=== PATIENT | male | born 1935 | race Caucasian/White ===

== ENCOUNTER 2016-09-11 09:39 | Day surgery (SDC) | payer MEDICARE ==
[~2016-09-11] VITALS: Ht 175.3 cm; Wt 94.8 kg
[2016-09-11] VITALS (11 sets, daily range): BP systolic 91–127; BP diastolic 51–59; PULSE 53–88; RESP 6–20; O2SAT 94–100
[~2016-09-11 09:39] MED LIST: ACET325T51 PO; ASCO500C6 PO; ASPI-973 PO; BACL10TA PO; BISA10SU61 RC; CRAN450C PO; Clindamycin 900 mg/50 mL D5W IV ONE; DAPT500V2 IV; DOCU250C2 PO; DULO60CA61 PO; GABA-502 PO; Lactated Ringer's 1,000 ML IV SCH; MAGN400O4 PO; OXYB5TAB PO; OXYC10TA69 PO; OXYC5TAB72 PO; PIPE3.377 IV; POLY17PO6 PO; SENN-133 PO; ZINC220C9 PO
--- NOTE | 2016-09-11 10:30 | PCM.HPANE ---
Patient Data Surgeon Admitting Provider: Attending Provider:Kristian Lee MD Primary Care Physician:Lisa Valenzuela MD Other Provider:Diya Edmondsoningham Anesthesia Reason for Visit Pressure Ulcers Ht/WT & BMI Height (Feet): 5 Height (Inches): 9 Weight (Kilograms): 94.8 Body Mass Index 30.00 Allergies Coded Allergies: cephalexin (Verified Allergy, Unknown, 08/06/16) ciprofloxacin (Verified Allergy, Unknown, 08/06/16) vancomycin (Verified Allergy, Unknown, 08/06/16) Past Anesthesia History Anesthesia History: Denies:: Abnormal Airway, Anesthesia Reactions, Difficult Intubation, Fam Anesthesia Reaction, Fam Malignant Hypertherm, Malignant Hyperthermia Diabetes History Hx Diabetes?: No 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) Medications Active Scripts oxyCODONE 5 Mg Tablet5 Mg PO Q4H PRN For Pain 3 Days Prov:Shannan Pittman DO 08/16/16 Oxycodone ER (Oxycontin)10 Mg Tab.er.12h20 Mg PO BID 3 Days Prov:Shannan Pittman DO 08/16/16 Baclofen 10 Mg Qoqrql51 Mg PO QID 3 Days Prov:Shannan Pittman DO 08/16/16 Reported Medications Vqffboaaqdrh-Memf-Zykbluad,Iso (Zosyn 3.375 gm/50 ml Galaxy)3.375 Gm/50 Ml Froz.piggy3.375 Gm IV TID 09/10/16 Daptomycin 500 Mg Bjnx831 Mg IV DAILY 09/10/16 Acetaminophen 325 Mg Bnrvva331 Mg PO Q4H PRN For Pain Ref 0 08/06/16 Bisacodyl (Dulcolax Rectal)10 Mg Supp.rect10 Mg RC DAILY PRN For Constipation 30 Days Ref 0 08/06/16 Magnesium Hydroxide (Milk of Magnesia)400 Mg/5 Ml Oral.susp30 Ml PO DAILY PRN For Constipation 08/06/16 Gabapentin 300 Mg Gwobpef795 Mg PO TID Ref 0 08/06/16 Zinc Sulfate 220 Mg Oxjnvrq961 Mg PO BID 08/06/16 Duloxetine 60 Mg Capsule.dr60 Mg PO BID Ref 0 08/06/16 Ascorbic Acid (Vitamin C)500 Mg Capsule.er500 Mg PO BID 08/06/16 Sennosides (Senna)8.6 Mg Tablet8.6 Mg PO DAILY 08/06/16 Oxybutynin Chloride ER 5 Mg Tab.er.245 Mg PO DAILY Ref 0 08/06/16 Polyethylene Glycol 3350 (Miralax)17 Gm Powd.pack17 Gm PO DAILY 08/06/16 Docusate Sodium 250 Mg Ohzhowf212 Mg PO DAILY Ref 0 08/06/16 Cranberry Fruit Concentrate (Cranberry)450 Mg Bivhbrq886 Mg PO DAILY 08/06/16 Aspirin 81 Mg Lyevzh49 Mg PO DAILY Ref 0 08/06/16 History History of ENT Problems?: No HEENT History: Denies:: Abnormal Airway Cataracts Difficult Intubation Dysphagia Sinus Problem Denture Type: Full- Upper Teeth Condition: Missing Teeth Other History/Comment no maxillary teeth. 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) Denies:: Cardiac Surgery Chest Pain Congestive Heart Failure Edema Heart Murmur Irregular Heartbeat Pacemaker Thrombophlebitis Other Cardiac History: ENDOCARDITIS - not currently a problem Hx of Respiratory Problem?: No Respiratory History: Denies:: Asthma COPD Chest Surgery Dyspnea Emphysema Hemoptysis Pneumonia Tuberculosis Hx Neurologic Problems?: Yes (paraplegia) Hx of GI Problems?: Yes Other GI Pertinent History: CONSTIPATION Hx of Problems?: Yes Genitourinary History: Positive for:: Kidney Stones (3 years ago ) Urinary Tract Infection (NEUROGENIC BLADDER) Denies:: HX of Hemodialysis (STAGE 3 CHRONIC KIDNEY DISEASE) HX of Peritoneal Dialysis: No Other Pertinent History: SUPRA PUBIC CATH Male Hx: Denies:: Prostate Problems Scrotal Mass Testicular Surgery Skin History: Positive for:: History Skin Disorders? Pressure Ulcers (OSTEOMYELITIS MYKE HIP) Hx Musculoskeletal Problems?: Yes Musculoskeletal History: Positive for:: Musculoskeletal Trauma (PARAPLEGIC) Hx of Psycho/Social Problems?: Yes Psycho Social History: Positive for:: Hx Depression Hx Surgeries?: Yes (Suprapubic ) Hx Any Other Health Problems?: No Other History: Positive for:: Hospitalization (Suprapubic placement ) Denies:: Cancer Thyroid Disease History Blood Transfusions: Denies:: Blood Transfuse Reaction Blood Transfusions Hx Diabetes: No Hx Alcohol Use: NoHx Substance Use: No Smoking Status: Never Smoker Have You Smoked inLast 12 mo: No Stop/Bang Risk Assessment Category Category 1A: Patient has history of documented sleep apnea, and HAS NOT received any narcotic, sedative or anesthesia administration during this stay. Category 1B: Patient has history of documented sleep apnea, and HAS received any narcotic , sedative or anesthesia administration during this stay Category 2: Patient has SUSPECTED Obstructive Sleep Apnea, and HAS received any narcotic , sedative or anesthesia administration during this stay. Category 3: Patient has SUSPECTED Obstructive Sleep Apnea and HAS NOT received narcotic, sedative or anesthesia administration during this stay. Category 4: Outpatient in Procedural Areas with known sleep apnea or who screen positive for High Risk via the STOP/BANG questionnaire. Exam Exam Vital Signs Vital Signs Date Time Temp Pulse Resp B/P Pulse Ox O2 Delivery O2 Flow Rate FiO2 09/11/16 09:56 36.4 60 19 127/57 95 Room Air General Appearance: Alert, Oriented X3 HEENT/AIRWAY: MP 2, Other (Missing maxillary teeth. Mandibular teeth worn to gum line) Lungs: Clear to Auscultation, Clear to Percussion Heart: Exam Unremarkable, Regular Rate/Rhythm Plan Impression Patient chart reviewed, patient interviewed and anesthestic plan with risks, benefits, and alternatives discussed, and informed consent obtained. NPO per Anesth. Guidelines: Yes ASA Physical Status: ASA3 Severe Disease Anesthetic Plan: GA Bene/Risks/Altern/Consents: Yes HP Complete Prior to Induction: Yes Quinn Nguyen MD September 11, 2016 10:10
[2016-09-11] MEDS ORDERED: SODIUM HYPOCHLORITE 0.25% TOPICAL ONE (10:33)
[2016-09-11] MEDS ORDERED: Lactated Ringer's 500 ML IV PRN (11:06)
[2016-09-11] MEDS ORDERED: Lactated Ringer's 1,000 ML IV SCH (11:06)
[2016-09-11] MEDS ORDERED: Lactated Ringer's 1,000 ML IV ONE (11:08)
[2016-09-11] MEDS ORDERED: Ondansetron 2 mg/mL 2 mL Inj IVPUSH PRN ×2 (11:10→13:05)
[2016-09-11] MEDS ORDERED: Phenylephrine 10,000 mCg/mL Inj IVPUSH PRN (11:10)
[2016-09-11] MEDS ORDERED: MetoCLOpramide 5 mg/mL 2 mL Inj IVPUSH PRN (11:10)
[2016-09-11] MEDS ORDERED: Atropine 0.4 mg/mL Inj IVPUSH PRN (11:10)
[2016-09-11] MEDS ORDERED: Labetalol 5 mg/mL 4 mL Inj IV PRN (11:10)
[2016-09-11] MEDS ORDERED: EPHEDrine Sulfate 50 mg/mL Inj IVPUSH PRN (11:10)
[2016-09-11] MEDS ORDERED: fentaNYL-PF 50 mCg/mL 2 mL Inj IVPUSH PRN (11:10)
--- NOTE | 2016-09-11 13:53 | PCM.ANEP1 ---
Post Anesthesia PACU Phase 1 Assessment Vital Signs Vital Signs Date Time Temp Pulse Resp B/P Pulse Ox O2 Delivery O2 Flow Rate FiO2 09/11/16 13:40 57 8 95/54 96 Nasal Cannula 3 09/11/16 13:36 59 6 91/52 94 Room Air 09/11/16 13:29 55 7 107/51 100 Simple Mask 10 09/11/16 13:20 53 6 105/51 100 Simple Mask 10 09/11/16 13:15 36.2 53 7 105/56 100 Simple Mask 10 09/11/16 09:56 36.4 60 19 127/57 95 Room Air Level of Alertness: Sleepy, easy to arouse PASTOR's with Equal Strength: Yes Pain: No Nausea or Vomiting: No CV Function & Hydration Stable: Yes Airway Device: Oxygen Delivery: Simple Mask Lungs: Clear to Auscultation, Clear to Percussion PACU Phase 2 Assessment Complications: No Follow up Care: No Patient Instructions Provided: N/A Quinn Nguyen MD September 11, 2016 13:53
[2016-09-11] MEDS ORDERED: Phenylephrine/NS 100 mCg/mL 10 mL Syringe IVPUSH ONE (14:30)
[2016-09-11] MEDS ORDERED: EPHEDrine/NS 5 mg/mL 5 mL Syringe ONE (14:30)
[2016-09-11] MEDS ORDERED: Ondansetron 2 mg/mL 2 mL Inj ONE (14:30)
[2016-09-11] MEDS ORDERED: Propofol 10,000 mCg/mL 20 mL Inj ONE (14:30)
[2016-09-11] MEDS ORDERED: fentaNYL-PF 50 mCg/mL 2 mL Inj ONE (14:30)
[2016-09-11] MEDS ORDERED: Dexamethasone 4 mg/mL Inj ONE (14:30)
[2016-09-11] MEDS ORDERED: [UNRECOGNIZED DRUG - OTHER] IV SCH (14:30)
[2016-09-11] MEDS ORDERED: PIPERACILLIN TAZO DEXTROSE ISO IV SCH (14:30)
--- NOTE | 2016-09-11 14:55 | NUR ---
Post op Transfer to [facility] room 1030 via stretcher at 14:40 onto Clinitron bed. Alert, oriented. Son at bedside. R dressing CDI, ZAIN draining sanguineous fluid. L dressing with moderate sero-sand fluid. 2-3 l O2 via nc to keep sats above 92%. 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 Equal strength and movement in upper extremities. Paraplegic. [place].
[2016-09-11] MEDS: Lactated Ringer's 1,000 ML IV SCH (15:00)
--- NOTE | 2016-09-11 17:35 | NUR ---
Wound Note Wound orders received, patient is 80 yo male who has had his right and left hip ulcers debrided today, right hip was debrided and a flap closure was performed, left was debrided only. Patient is currently on a clinitron bed, right hip dressing is not taken down today but left hip dressing was removed to reveal 5 cm diameter circular wound with periostium in the wound bed, no tunneling or tracts are apparent and edges are fresh and bleeding. Per discussion with Dr Lee NPWT was applied today with 2 pieces of white foam placed to fill wound bed then black foam was used to track the trac pad towards the anterior hip, pressure was set at 125 mmhg and continuous therapy employed, a good seal was attained, patient tolerated procedure without discomfort. Will need off loading surface and NPWT on discharge from hospital. Patient is a SNF resident.
[2016-09-11] MEDS: Piper-Tazo 3.375 Gm/50 mL D5W Minibag Plus - Q8H over 4 hrs IV SCH ×2 (17:57)
[2016-09-11] MEDS: Ascorbic Acid 500 mg Tablet PO SCH (20:33)
[2016-09-11] MEDS: oxyCODONE ER 10 mg ER12 Tablet PO SCH (20:33)
[2016-09-12 00:16] VITALS: BP 104/63; PULSE 63; RESP 16; O2SAT 99
[2016-09-12] MEDS: Lactated Ringer's 1,000 ML IV SCH ×2 (01:59→09:01)
[2016-09-12] MEDS: Piper-Tazo 3.375 Gm/50 mL D5W Minibag Plus - Q8H over 4 hrs IV SCH ×4 (02:00→08:58)
[2016-09-12 05:22] LABS: BASOPHILS % (AUTO) 0.4 % (0-3); EOSINOPHILS % (AUTO) 2.7 % (0-5); MONOCYTES % (AUTO) 9.7 % (4-12); Mean Corpuscular Hemoglobin 31.6 pg (27.0-35.0); Mean Corpuscular Volume 100.4 fL (81-100); NEUTROPHILS % (AUTO) 44.9 % (40-74); Platelet Count 174 bil/L (150-400)
[2016-09-12 05:46] VITALS: BP 99/57; PULSE 66; RESP 18; O2SAT 95
--- NOTE | 2016-09-12 07:31 | NUR ---
WOUNDS/ACTIVITY/PAIN PT REPORT NO PAIN TO BL HIPS THROUGHOUT NIGHT. DRESSING CDI TO LEFT HIP AND WOUND VAC DRESSING INTACT TO RIGHT HIP, RUNNING AT SPECS, NO LEAKS NOTED. PT ON CLINITRON BED AND IS LYING SUPINE WITH NO WEIGHT TO RIGHT SIDE. PARAPLEGIC WITH SUBRAPUBIC CATHETER. DRAINING CLEAR YELLOW URINE TO GRAVITY. IV PATENT WITH FLUIDS INFUSING. CARE CONTINUES
[2016-09-12] MEDS ORDERED: DULoxetine 30 mg DR Capsule PO SCH (08:30)
[2016-09-12] MEDS ORDERED: DAPTOMYCIN 500 MG IV SCH (08:30)
[2016-09-12] MEDS ORDERED: Polyethylene Glycol (PEG) 17 Gm Powder PO SCH (08:30)
[2016-09-12] MEDS ORDERED: Tolterodine ER 2 mg ER24 Capsule PO SCH (08:30)
[2016-09-12] MEDS ORDERED: DAPTOmycin Inj 600 MG in 0.9% Sodium Chloride 50 ML IV SCH (08:30)
[2016-09-12] MEDS ORDERED: CRANBERRY FRUIT 900 MG PO SCH (08:30)
[2016-09-12] MEDS ORDERED: OXYBUTYNIN CHLORIDE 5 MG PO SCH (08:30)
[2016-09-12 08:38] VITALS: BP 94/54; PULSE 56; RESP 18; O2SAT 96
[2016-09-12] MEDS: oxyCODONE ER 10 mg ER12 Tablet PO SCH (08:53)
[2016-09-12] MEDS: Ascorbic Acid 500 mg Tablet PO SCH (08:56)
--- NOTE | 2016-09-12 10:24 | PCM.DISURG ---
Surgical Discharge Instruction Date of Service Sep 12, 2016 Dates of Hospitalization Date of Hospital Admission September 11, 2016 at 14:29 Providers Admitting Physician: Kristian Lee MD Primary Care Physician: Lisa Valenzuela MD Attending Physician: Kristian Lee MD Discharge Diagnosis Discharge Diagnosis Bilateral stage 4 trochanteric pressure ulcer Paraplegia Post Operative diagnosis Same Diet Discharge Diet: No restrictions Activity Discharge Activity-General: Other (Strict decubitus protocal. Patient cannot be on his right side. No leaning or laying on the right side. No pressure over the right thigh flap. Patient can be on the left side but preferably be completely on the left side and NOT sit/lean on the left side.) Dressing and Incisional Care Dressing Care: Other (May removel right thigh dressing on 09/13/16. Antibiotic ointment to estrella 3-4 times a day. VAC care to left side, change q Mon, Wed and Fri. Strip and record ZAIN output BID to TID.) Hygiene: May shower (after 09/13/2016) Additional Instructions Discharge Instructions Absolutely no weight on right hip and right thigh flap. Decubitus protocol with Clinitron bed. Resume preoperative medications. Contact Jesus with any concerns or flap issue. Follow Up Plan Follow Up Plan See Jesus in 2 weeks at [facility] Follow-up Provider (F9): Kristian Lee MD Follow-up appointment: Weeks (2 weeks at [facility]) Kristian Lee MD Sep 12, 2016 10:24
--- NOTE | 2016-09-12 10:24 | NUR ---
Social Work- Initial Assessment/ Readiness for Discharge Data: See Initial Assessment. Pt is a 80 year old male admitted under outpt surgery for pressure ulcers per H&P. Pt's insurance is [facility]. Pt's PCP is Lisa Valenzuela MD. SW met with pt at bedside regarding discharge plan, SW role explained. Pt alert and oriented x3. Pt resides at [facility] as a long term care administrator care resident. Pt uses an electric wheelchair at baseline and receives assistance with ADLs. Pt has no HH history but has been to [facility] for rehab prior to moving to [facility] [place] [place] in [place]. Pt has no LTC or VA benefits. Pt requires a clinitron bed and wound vac, which [facility] [place] [place] is able to provide. As pt is here under outpt surgery, pt to discharge to [facility] today. Discharge orders are active. T/C to [facility], admissions at [facility], regarding pt's return. [facility] is agreeable and is working on obtaining the wound vac. UR Specialist confirmed that the pt will not require an insurance authorization prior to pt's return. Pt will require BLS transport to [facility], TESSA to work on coordination of this. SW will continue to follow. Assessment: Pt for whom SNF is medically necessary as pt is a custodial care resident and is receiving wound care and IV abx. Plan: Pt to discharge today. Pt to discharge to [facility] with Bianca to follow. Transport via BLS. Paperwork in chart. SW will continue to follow. MICHELLE Esparza Addendum: 09/12/16 at 1035 by CLARISA HO Amended: Links added.
--- NOTE | 2016-09-12 10:27 | NUR ---
SPOKE TO TERRELL AT [facility]:PT'S DC TO [facility]. NO AUTH REQUIRED SINCE OUTPT AND LESS THEN 24 HR STAY. TERRELL WILL CALL JUANA AT [facility] TO ADVISE OK TO ACCEPT BACK. ADVISED PINSETTER MECHANIC AUTOMATIC
--- NOTE | 2016-09-12 12:17 | NUR ---
Faxed orders to [facility] and placed copy in the chart. Arranged BLS transport via [facility], PCS from completed by RN per MD order. processing supervisor scheduled for 1330 Updated LOG CHECK SCALER and RN
--- NOTE | 2016-09-12 12:29 | NUR ---
Social Work- Discharge Data: EMR reviewed. Pt to discharge today, discharge orders are active. T/C to [facility] regarding pt's return, [facility] has all necessary equipment available and is ready to accept pt. TERRITORY SALES PROFESSIONAL met with pt at bedside regarding discharge, pt agreeable. T/C to pt's son Roverto [phone] regarding pt's discharge, left message informing him and requested return call. SUPERVISOR WEAVING created packet and faxed orders. Per Provider to RN communication, pt medically necessitates BLS transportation. RN completed PCS form, SUPERVISOR WEAVING assisted with arranging transport. TESSA spoke with pt at bedside stating that insurance coverage of BLS transportation is never guaranteed. Pt stated understanding. Pt to discharge to [facility] via [facility]LS at 1330. RN, UC, pt/family, and [facility] all updated and agreeable to plan. Assessment: Pt who will return to [facility] after an outpt surgical procedure. Plan: Pt to discharge to [facility] via BLS at 1330. RN, UC, pt/family, and [facility] all updated and agreeable to plan. Nikki Sands, TERRITORY SALES PROFESSIONAL
--- NOTE | 2016-09-12 12:56 | NUR ---
Discharge Note Pt denied any pain this morning, later c/o generalized leg pain, rating at 6/10. PRN Oxycodone/Tylenol effective for this. Pt now preparing to discharge to [facility]. Report given to receiving nurse, Terri.
--- NOTE | 2016-09-13 14:07 | PATH ---
SURGICAL PATHOLOGY Attending Physician:Kristian Lee CASE STATUS: Signed Out PATIENT NAME: ABHAY BARBA PID: [id number] : 1935 DATE COLLECTED:09/11/2016 00:00 SPECIMEN: 1: Soft Tissue, NOS 2: Soft Tissue, NOS CLINICAL HISTORY: BILATERAL TROCHANTERIC PRESSURE ULCERS. 1). LEFT TROCHANTERIC PRESSURE ULCER 2). RIGHT TROCHANTERIC PRESSURE ULCER FINAL DIAGNOSIS: 1. 2. TISSUE FROM LEFT AND RIGHT TROCHANTERIC PRESSURE ULCERS: SOFT TISSUE WITH SURFACE NECROSIS CONSISTENT WITH ULCERATION, SEVERE NECROTIC AND DEGENERATIVE CHANGES EXTENDING THROUGHOUT THE DEEPER SOFT TISSUES INCLUDING FIBROUS TISSUE AND SKELETAL MUSCLE (CHANGES SIMILAR IN BOTH SPECIMENS). DEGENERATIVE CHANGES EXTEND TO THE INKED EDGES OF THE SPECIMENS. ICD10 L89.204 L89.214 GROSS DESCRIPTION: The specimens are received in formalin, labeled with the patient's name, and sublabeled as the following: (1) left trochanteric pressure ulcer; (2) right trochanteric pressure ulcer. (1) The specimen consists of a piece of yellow-green densely fibrous rubbery tissue (6.5 x 5.5 x 1.7 cm). The cut surface is bright white and focally green. Ink code: black-resection margin. Section code: (1A-1D) tissue, serially sectioned, circulation sales representative. (2) The specimen consists of a piece of yellow-[place] densely fibrous rubbery tissue (4.7 x 4.1 x 1.6 cm). The cut surface is bright white and focally yellow-[place]. Ink code: black-resection margin. Section code: (2A-2C) tissue, serially sectioned, circulation sales representative. 09/12/16 MICRO DESCRIPTION: See diagnosis. ICD-9 CODES: CPT CODES: 1: 39526 2: 82996 Electronically Signed Out Jam Yadav MD [facility] [address], [place] [address] Technical component performed at [facility], [facility] [address], [place], [address]
--- NOTE | 2016-09-20 00:10 | OP ---
[address] [address] OPERATIVE REPORT PATIENT: ABHAY BARBA : 1935 MR#: [id number] ADMIT: 09/11/2016 JOB ID: [id number] DATE OF SURGERY: 09/11/2016 PREOPERATIVE DIAGNOSIS(ES): 1. Left trochanteric pressure ulcer. 2. Right trochanteric pressure ulcer. POSTOPERATIVE DIAGNOSIS(ES): 1. Left trochanteric pressure ulcer, 8 cm x 10 cm, stage IV. 2. Right trochanteric pressure ulcer, 4 cm x 4 cm, stage IV. PROCEDURE: 1. Debridement of left trochanter pressure ulcer including subcutaneous tissue, muscle. Total area debrided 50 cm2. 2. Excision of right trochanter pressure ulcer in preparation for closure. 3. Closure of right trochanteric pressure ulcer with myocutaneous flap. SURGEON: Attending surgeon: Kristian Lee MD. MOP MAKER: Mainor Venegas PA-C. ANESTHESIA: General anesthesia. SPECIMEN: Bilateral pressure ulcer to Pathology. ESTIMATED BLOOD LOSS: 40 cc. DRAINS: A #15 round Per drain x1 on right side. INDICATIONS FOR PROCEDURE: This is a 80-year-old male patient with paraplegia who has developed bilateral trochanteric pressure ulcers. The left side pressure ulcer is quite large, while the right side is smaller. The pressure ulcers are unstageable but do have necrotic tissue at the base of the wound and is quite close to the bone. At this point, debridement of the left pressure ulcer is indicated to promote healing. The right side pressure ulcer will be excised and the defect closed with a musculocutaneous flap. PROCEDURE AND FINDINGS: The patient was identified in the preoperative area. The surgical site was marked. The patient was then taken back to the operating room and placed supine on the operating table. Appropriate time-outs were taken. General anesthesia was induced smoothly. The patient was then placed into a modified supine position with the left hip propped up. The left trochanteric pressure ulcer was then prepped and draped in the usual sterile manner. It was noted that the opening of the ulcer is approximately 8 cm x 7 cm. The subcutaneous tissue appears to be healthy. However, there is an obvious necrotic muscle and eschar at the base of this wound. I used electrocautery to cut around the edge of this eschar at the junction of necrotic and viable tissue. This was deepened down to the periosteum. I was able to excise this piece of necrotic what appears to be muscle. This was passed off to Pathology as a specimen. It appears that the periosteum continues to be intact at the base of this wound. There is some bleeding observed in this area. After the excision of this piece of necrotic tissue, which measured approximately 10 cm in its widest dimension, the soft tissue now has some cavitation and undermining. The area was irrigated with saline solution. Using several 3-0 Vicryl kjwnyu-dj-pzfpc sutures the area of the undermining was tacked down. The roof of the soft tissue was tacked down to the underlying remaining muscle. This allowed the defect size to go from 10 cm x 9 cm down deep to approximately 8 cm x 8 cm, same dimension as the opening. Once this had been done, the wound was packed with Dakin's solution soaked Kerlix. I then turned my attention to the right hip. The patient was placed into a modified supine position with a wedge under the right back. The patient was then prepped and draped in the usual sterile manner on the right side. Again, the trochanteric pressure ulcer has a very similar appearance to the left side. The skin and the underlying soft tissue appeared to be quite healthy. However, at the base of the wound there is a wet eschar. Again, incision was made around the eschar in the viable tissue. This extended down close to the periosteum. Again, this area of necrotic tissue was removed with electrocautery. The fascial defect in this area is approximately 5 cm in diameter down deep. The area was irrigated with copious amounts of saline solution. No exposed bone was noticed. At this point, I turned my attention to designing a rotational skin flap. The flap was designed. Incision was then made around the flap down to the underlying deep fascia. It was noted that the defect essentially eroded through the posterior and proximal aspect of the tensor fascia arturo muscle. Once the skin flap had been elevated off of the tensor fascia arturo muscle, and off of some of the quadriceps muscle I identified the medial or anterior edge of the tensor fascia arturo muscle. Incision was then made along the border and I was able to elevate the tensor fascia arturo muscle up. Care was taken to not disturb the pedicle. Once this had been done circumferentially leaving only the pedicle as the attachment, the muscle was removed dorsally to cover the ulcer. It was then sutured in place with several 2-0 PDS mtfcxi-re-zqumk sutures to sew the tensor facia arturo to the residual muscle beyond the ulcer. Once this had been done, skin flap was then advanced into the defect over the tensor fascia arturo muscle. Excess flap superiorly was removed. Once this had been done, a layer of 3-0 Vicryl xmlgrf-np-ebhor sutures was then used to reapproximate the deep soft tissue. At the inferior most aspect of the incision, a Burow triangle was designed and excised. A #15 round Per drain was then placed between the skin flap in the muscle exiting through a separate inferior stab incision. Once the 3-0 Vicryl iqsgui-rt-xlvom sutures were done reapproximating the deep tissue, a layer of 3-0 Vicryl rhzand-xl-fovkn sutures was used to reapproximate the superficial adipose tissue. A layer of 3-0 Monocryl dermal deep dermal sutures were then placed, followed by skin staplers. The patient tolerated the procedure well. Needle count, sponge count, instrument counts were correct at the end of the procedure. The patient was extubated and transported to recovery in stable condition. CHRISTINA
== END 2016-09-12 13:45 ==
LOC: SAS 09:39 → OSC 14:29 → UNDOADMOB 14:29 → SAS 09-12 13:45
PROVIDERS: ATTEND Plastic Surgery
DX: L89.214 Pressure ulcer of right hip, stage 4 (principal); L89.224 Pressure ulcer of left hip, stage 4; M86.8X6 Other osteomyelitis, lower leg; I12.9 Hypertensive chronic kidney disease with stage 1 through stage 4 chronic kidney disease, or unspecified chronic kidney disease; I38 Endocarditis, valve unspecified; N18.3 Chronic kidney disease, stage 3 (moderate); K59.00 Constipation, unspecified; G89.29 Other chronic pain; G82.20 Paraplegia, unspecified; N31.9 Neuromuscular dysfunction of bladder, unspecified; Z87.440 Personal history of urinary (tract) infections; Z79.82 Long term (current) use of aspirin; Z86.14 Personal history of Methicillin resistant Staphylococcus aureus infection
CPT/HCPCS: 11043; 11046; 15738; 15956; 36415; 80053; 85025; 96365; 96366; 97605; J1100; J1650; J2370; J2405; J2543; J3010; J7120

== ENCOUNTER 2017-01-08 10:35 | Day surgery (SDC) | payer MEDICARE ==
[2017-01-08] VITALS (12 sets, daily range): BP systolic 113–167; BP diastolic 57–84; PULSE 72–82; RESP 10–22; O2SAT 94–100
[~2017-01-08] VITALS: Ht 177.8 cm; Wt 90.3 kg
[2017-01-08] MEDS: Lactated Ringer's 1,000 ML IV SCH ×2 (05:00→10:59)
[2017-01-08] MEDS: Lactated Ringer's 500 ML IV PRN ×2 (09:25→10:59)
[~2017-01-08 10:35] MED LIST changes: -ACET325T51 PO; -ASCO500C6 PO; -CRAN450C PO; +CRAN450T4 PO; -Clindamycin 900 mg/50 mL D5W IV ONE; +Clindamycin Inj 900 MG in IV Premix 1 EACH IV ONE; -DAPT500V2 IV; +DULO30CA50 PO; -DULO60CA61 PO; +Dexamethasone 4 mg/mL Inj IVPUSH PRN; +EPHEDrine Sulfate 50 mg/mL Inj IVPUSH PRN; -GABA-502 PO; +GABA600T2 PO; +HYDROmorphone 1 mg/mL Inj IVPUSH PRN; -MAGN400O4 PO; +MetoCLOpramide 5 mg/mL 2 mL Inj IVPUSH PRN; -OXYB5TAB PO; +OXYC-530 PO; -OXYC5TAB72 PO; +Ondansetron 2 mg/mL 2 mL Inj IVPUSH PRN; -PIPE3.377 IV; +Phenylephrine 10,000 mCg/mL Inj IVPUSH PRN; +TOLT2CAP8 PO; -ZINC220C9 PO; +fentaNYL-PF 50 mCg/mL 2 mL Inj IVPUSH PRN
[2017-01-08] MEDS ORDERED: Ketamine 10 mg/mL 20 mL Inj ONE (10:36)
[2017-01-08] MEDS ORDERED: Propofol 10,000 mCg/mL 20 mL Inj ONE (10:36)
[2017-01-08] MEDS ORDERED: Clindamycin 900 mg/50 mL D5W Premix IV ONE (10:48)
--- NOTE | 2017-01-08 11:03 | PCM.HPANE ---
Patient Data Surgeon Admitting Provider: Attending Provider:Kristian Lee MD Primary Care Physician:Lisa Valenzuela MD Other Provider:Diya Edmondsoningham Anesthesia Reason for Visit Left Hip Pressure Ulcer Ht/WT & BMI Height (Feet): 5 Height (Inches): 10.00 Weight (Kilograms): 90.260 Body Mass Index 28.00 Allergies Coded Allergies: cephalexin (Verified Allergy, Unknown, 01/01/17) ciprofloxacin (Verified Allergy, Unknown, 01/01/17) vancomycin (Verified Allergy, Unknown, 01/01/17) Past Anesthesia History Anesthesia History: Denies:: Abnormal Airway, Anesthesia Reactions, Difficult Intubation, Fam Anesthesia Reaction, Fam Malignant Hypertherm, Malignant Hyperthermia Diabetes History Hx Diabetes?: No 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) Medications Blood Thinner: Aspirin Hypertension Medication: No Home Meds Incl Beta Leopoldo: No Reported Medications Tolterodine Tartrate ER 2 Mg Capsule2 Mg PO DAILY 01/01/17 Sennosides (Senna)8.6 Mg Tablet2 Tab PO PRN For Constipation 01/01/17 Oxycodone ER (Oxycontin)10 Mg Tab.er.12h10 Mg PO Q8H 01/01/17 oxyCODONE 5 Mg Tablet5-10 Mg PO Q4H PRN For Pain Ref 0 01/01/17 Polyethylene Glycol 3350 (Miralax)17 Gm Powd.pack17 Gm PO DAILY 01/01/17 Gabapentin 600 Mg Tablet1,200 Mg PO HS Ref 0 01/01/17 Gabapentin 600 Mg Tpoodp249 Mg PO 0600/1400 Ref 0 01/01/17 Duloxetine 30 Mg Capsule.dr60 Mg PO BID Ref 0 01/01/17 Docusate Sodium 250 Mg Xtposje261 Mg PO BID Ref 0 01/01/17 Cranberry Fruit Concentrate (Cranberry)450 Mg Hoiuma483 Mg PO DAILY 01/01/17 Bisacodyl (Dulcolax Rectal)10 Mg Supp.rect10 Mg RC DAILY PRN For Constipation 30 Days Ref 0 01/01/17 Baclofen 10 Mg Usodec99 Mg PO TID Ref 0 01/01/17 Aspirin 81 Mg Xwrfml83 Mg PO DAILY Ref 0 01/01/17 Discontinued Reported Medications Cvfnfsniyati-Qfng-Osuxbyxw,Iso (Zosyn 3.375 gm/50 ml Galaxy)3.375 Gm/50 Ml Froz.piggy3.375 Gm IV TID 09/10/16 Daptomycin 500 Mg Chsz650 Mg IV DAILY 09/10/16 Acetaminophen 325 Mg Hfrjbz041 Mg PO Q4H PRN For Pain Ref 0 08/06/16 Bisacodyl (Dulcolax Rectal)10 Mg Supp.rect10 Mg RC DAILY PRN For Constipation 30 Days Ref 0 08/06/16 Magnesium Hydroxide (Milk of Magnesia)400 Mg/5 Ml Oral.susp30 Ml PO DAILY PRN For Constipation 08/06/16 Gabapentin 300 Mg Nfkdrhv641 Mg PO TID Ref 0 08/06/16 Zinc Sulfate 220 Mg Pgblbwz960 Mg PO BID 08/06/16 Duloxetine 60 Mg Capsule.dr60 Mg PO BID Ref 0 08/06/16 Ascorbic Acid (Vitamin C)500 Mg Capsule.er500 Mg PO BID 08/06/16 Sennosides (Senna)8.6 Mg Tablet8.6 Mg PO DAILY 08/06/16 Oxybutynin Chloride ER 5 Mg Tab.er.245 Mg PO DAILY Ref 0 08/06/16 Polyethylene Glycol 3350 (Miralax)17 Gm Powd.pack17 Gm PO DAILY 08/06/16 Docusate Sodium 250 Mg Xqxdpho568 Mg PO DAILY Ref 0 08/06/16 Cranberry Fruit Concentrate (Cranberry)450 Mg Ltigurh028 Mg PO DAILY 08/06/16 Aspirin 81 Mg Negbvj18 Mg PO DAILY Ref 0 08/06/16 Discontinued Scripts oxyCODONE 5 Mg Tablet5 Mg PO Q4H PRN For Pain 3 Days Prov:Shannan Pittman DO 08/16/16 Oxycodone ER (Oxycontin)10 Mg Tab.er.12h20 Mg PO BID 3 Days Prov:Shannan Pittman DO 08/16/16 Baclofen 10 Mg Voyhnr15 Mg PO QID 3 Days Prov:Shannan Pittman DO 08/16/16 History History of ENT Problems?: No HEENT History: Denies:: Abnormal Airway Cataracts Difficult Intubation Dysphagia Sinus Problem Denture Type: None Teeth Condition: Broken Teeth Tooth Decay Missing Teeth Other HEENT Pertinent History: missing teeth, blackened teeth, mandibular teeth worn to gum line Hx of Heart Problems?: Yes Cardiovascular History: Positive for:: Valvular Heart Disease (echo 08/2016 ef 55-60%) Denies:: Cardiac Surgery Chest Pain Congestive Heart Failure Edema Heart Murmur Hypertension Irregular Heartbeat Pacemaker Thrombophlebitis Hx of Respiratory Problem?: No Respiratory History: Denies:: Asthma COPD Chest Surgery Dyspnea Emphysema Hemoptysis Pneumonia Tuberculosis Hx Neurologic Problems?: Yes (paraplegia @ T10 level) Neurological History: Positive for:: Dementia Hx of GI Problems?: Yes Hx of Problems?: Yes Genitourinary History: Positive for:: Kidney Stones (3 years ago ) Denies:: HX of Hemodialysis (stage 3 CKD) Urinary Tract Infection HX of Peritoneal Dialysis: No Other Pertinent History: neurogenic bladder with suprapubic catheter in place Male Hx: Denies:: Prostate Problems Scrotal Mass Testicular Surgery Skin History: Positive for:: History Skin Disorders? Pressure Ulcers (OSTEOMYELITIS MYKE HIP, left hip current admission problem) Hx Musculoskeletal Problems?: Yes Musculoskeletal History: Positive for:: Musculoskeletal Trauma (paraplegic) Hx of Psycho/Social Problems?: Yes Psycho Social History: Positive for:: Hx Depression Hx Surgeries?: Yes (Suprapubic, flap closure right hip ) Hx Any Other Health Problems?: Yes Other History: Positive for:: Hospitalization Denies:: Cancer Thyroid Disease History Blood Transfusions: Denies:: Blood Transfuse Reaction Blood Transfusions Hx Diabetes: No Hx Alcohol Use: NoHx Substance Use: No Smoking Status: Never Smoker Have You Smoked inLast 12 mo: No Stop/Bang S-Snoring: Do You Snore Loudly: No T-Tired: feel tired, fatigued: No O-Obsered: Observed not breath: No P-Blood Pressure: treated: No B- Body Mass Index > 35 kg/m2: No A- Age over 50: Yes N- Neck Large Circumference: No G- Gender Male: Yes DAFNE Total Score: 2 DAFNE Risk Assessment: Low Risk, <3 Yes Risk Assessment Category Category 1A: Patient has history of documented sleep apnea, and HAS NOT received any narcotic, sedative or anesthesia administration during this stay. Category 1B: Patient has history of documented sleep apnea, and HAS received any narcotic , sedative or anesthesia administration during this stay Category 2: Patient has SUSPECTED Obstructive Sleep Apnea, and HAS received any narcotic , sedative or anesthesia administration during this stay. Category 3: Patient has SUSPECTED Obstructive Sleep Apnea and HAS NOT received narcotic, sedative or anesthesia administration during this stay. Category 4: Outpatient in Procedural Areas with known sleep apnea or who screen positive for High Risk via the STOP/BANG questionnaire. Exam Exam Vital Signs Vital Signs Date Time Temp Pulse Resp B/P Pulse Ox O2 Delivery O2 Flow Rate FiO2 01/08/17 09:33 36.8 72 14 167/76 96 Room Air General Appearance: Alert, Oriented X3, Cooperative, No Acute Distress HEENT/AIRWAY: MP 2 Lungs: Clear to Auscultation, Normal Air Movement Heart: Exam Unremarkable, Regular Rate/Rhythm, No Murmurs/Rubs/Gallops Plan Impression Patient chart reviewed, patient interviewed and anesthestic plan with risks, benefits, and alternatives discussed, and informed consent obtained. NPO per Anesth. Guidelines: Yes ASA Physical Status: ASA3 Severe Disease (t10 paraplegia) Anesthetic Plan: GA Bene/Risks/Altern/Consents: Yes HP Complete Prior to Induction: Yes Lv Zuluaga MD Jan 08, 2017 11:03
[2017-01-08] MEDS ORDERED: Ondansetron 2 mg/mL 2 mL Inj IVPUSH PRN (12:50)
[2017-01-08] MEDS ORDERED: oxyCODONE-Acetamin 5-325 mg Tablet PO PRN (12:50)
--- NOTE | 2017-01-08 13:31 | PCM.ANEP1 ---
Post Anesthesia PACU Phase 1 Assessment Vital Signs Vital Signs Date Time Temp Pulse Resp B/P Pulse Ox O2 Delivery O2 Flow Rate FiO2 01/08/17 13:20 75 10 135/70 94 Room Air 01/08/17 13:15 75 10 128/70 96 Room Air 01/08/17 13:10 72 11 142/71 99 Room Air 01/08/17 13:06 36.4 72 10 151/79 100 Nasal Cannula 3 01/08/17 09:33 36.8 72 14 167/76 96 Room Air Anesthetic Administered: GA Level of Alertness: Awake, talking PASTOR's with Equal Strength: Yes Pain: No Nausea or Vomiting: No CV Function & Hydration Stable: Yes Airway Device: none Oxygen Delivery: Simple Mask Lungs: Clear to Auscultation, Normal Air Movement Dermatome Level: Full Sensation PACU Phase 2 Assessment Complications: No Follow up Care: No Patient Instructions Provided: N/A Lv Zuluaga MD Jan 08, 2017 13:31
[2017-01-08] MEDS: 0.9% Sodium Chloride 1,000 ML IV SCH ×2 (15:07→22:04)
--- NOTE | 2017-01-08 17:18 | NUR ---
Social Work-initial assessment: Data:See initial assessment. Pt is a 81 y/o male who was admitted on 01/08/17 for pressure ulcer per H&P. Pt's insurance is [employer] and PCP is Lisa Valenzuela MD. EMR Reviewed. SW met with pt at bedside, SW role explained. Pt is alert and oriented x3. 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 Pt uses a w/c at baseline and does not drive. Pt has no HH history. Pt has no senior living care insurance or VA benefits. SW discussed DPOA/ advanced directive paperwork, pt confirms he has completed this, SW encouraged a copy to be brought in. Pt does not have capacity for self care, requiring skilled level of care at baseline. SW provided pt with discharge planning checklist and encouraged pt to call with any questions,phone number provided on white board in room. Pt plans to return to [facility] when medically stable. SW to await MD order for resume SNF to discuss pt with [facility]. Paperwork placed in the chart. SW will continue to follow. Assessment:Pt who resides at [facility]. Plan:Pt to likely discharge back to [facility] when medically table. SW to await MD order for resume SNF to discuss pt with [facility]. Paperwork placed in the chart. SW will continue to follow. MICHELLE Aguilar Addendum: 01/08/17 at 1723 by DESMOND ANGULO SS Amended: Links added.
[2017-01-08] MEDS: oxyCODONE ER 10 mg ER12 Tablet PO SCH (17:57)
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
[2017-01-08] MEDS: DULoxetine 30 mg DR Capsule PO SCH (20:21)
--- NOTE | 2017-01-08 23:35 | NUR ---
Pain Pt denies pain. Dressing is clean dry and intact to left hip. ZAIN draining serosang fluid. Call light within reach. Will cont to monitor
[2017-01-09] MEDS: oxyCODONE ER 10 mg ER12 Tablet PO SCH ×2 (00:01→07:50)
[2017-01-09 05:32] VITALS: BP 118/69; PULSE 80; RESP 18; O2SAT 95
[2017-01-09] MEDS: 0.9% Sodium Chloride 1,000 ML IV SCH ×2 (05:39→12:14)
[2017-01-09] MEDS: DULoxetine 30 mg DR Capsule PO SCH (07:49)
[2017-01-09] MEDS ORDERED: Tolterodine ER 2 mg ER24 Capsule PO SCH (08:30)
[2017-01-09] MEDS ORDERED: Polyethylene Glycol (PEG) 17 Gm Powder PO SCH (08:30)
[2017-01-09 08:50] VITALS: BP 110/65; PULSE 90; RESP 19; O2SAT 94
--- NOTE | 2017-01-09 09:03 | PCM.DISURG ---
Surgical Discharge Instruction Date of Service Jan 09, 2017 Dates of Hospitalization Date of Hospital Admission 01/08/17 Providers Admitting Physician: Primary Care Physician: Lisa Valenzuela MD Attending Physician: Kristian Lee MD Discharge Diagnosis Discharge Diagnosis Left hip stage 4 pressure ulcer Paraplegia Post Operative diagnosis Same Diet Discharge Diet: No restrictions Activity Discharge Activity-General: Other (No pressure at surgical site for 3 weeks, then as further directed. Continue off loading bed. Continue decubitus protocol.) Dressing and Incisional Care Dressing Care: Other (May remove dressing on 01/10/17. Antibiotic ointment to staple line 3-4 times a day. Strip ZAIN drain 3 times a day.) Hygiene: May shower (after 01/10/17) Additional Instructions Discharge Instructions Patient cannot bear weight at the surgical site. Follow up with Dr. Lee at [facility] on 01/16/17 Follow Up Plan Follow Up Plan Follow up with Dr. Lee at [facility] on 01/16/17. Please call to make appt. Kristian Lee MD Jan 09, 2017 09:03
--- NOTE | 2017-01-09 10:10 | NUR ---
Inpatient Wound Nurse Stage 2 PI identified on L sacrum. This wound appears to be chronic and longstanding. It measures 2 cm L x 2 cm W x 0.1 cm D. Wound bed is dark pink, dry, and crusted. Edges are well-adhered with circumferential callous. Periwound skin is dark brown, indicating chronic healing and reopening of wound. Periwound is blanchable. Wound was cleansed, blotted dry, and covered with hydrocolloid. Dressing over L thigh was coming loose with lack of tape adherence. All loose tape was trimmed off and new retention tape applied and dressing secured. Small area (<0.5 cm x <0.5 cm) of hypergranulation tissue noted on L side of SPC. No bleeding. Patient admits to "picking" at different areas on his body, such as L cheek and neck where he has pulled facial hairs and created small, bleeding wounds. His skin otherwise is pink and warm.
--- NOTE | 2017-01-09 11:08 | NUR ---
PRISON TRANSFER : Faxed orders to [facility], patient comes from there and is returning via BLS arranged through [facility] and they will picker operator between [id number]. Updated [employer]ER MILL TENDER
--- NOTE | 2017-01-09 11:22 | OP ---
[address] [address] OPERATIVE REPORT PATIENT: ABHAY BARBA : 1935 MR#: [id number] ADMIT: 01/08/2017 JOB ID: [id number] DATE OF SURGERY: 01/08/2017 PREOPERATIVE DIAGNOSIS(ES): Left hip pressure ulcer stage 4. POSTOPERATIVE DIAGNOSIS(ES): Left hip pressure ulcer stage 4. PROCEDURE: 1. Excision of left hip pressure ulcer in preparation for closure. 2. Musculocutaneous flap closure of left hip pressure ulcer. SURGEON: Dr. Kristian Lee SOCIAL AND HUMAN SERVICES ASSISTANT: Malvin Baeza PA-C who was present for necessary retraction, exposure and closure. ANESTHESIA: General anesthesia. COMPLICATIONS: None apparent. SPECIMEN: Left hip pressure ulcer to Pathology. ESTIMATED BLOOD LOSS: 50 cc. COMPLICATIONS: None apparent. INDICATIONS FOR PROCEDURE: This is an 81-year-old male patient with a history of bilateral stage 4 pressure ulcer on the left hip just posterior to the greater trochanter. I had taken the patient back to the operating room on September 11, 2016. At that time the left-sided pressure ulcer, which was much larger, was debrided and excised. The patient's right pressure ulcer, which was smaller was closed at that time. The patient continues to make improvement in terms of healing. At this point, excision and closure of the left hip pressure ulcer is indicated. PROCEDURES AND FINDINGS: The patient was identified in the preoperative area and surgical site was marked. The patient was then taken back to the operating room and placed supine on the operating table. Appropriate time-outs were taken. General anesthesia was induced smoothly. The patient was then placed into a modified supine position with the left hip elevated slightly. The patient was then prepped and draped in the usual sterile manner. It was noted that patient has a pressure ulcer on the left hip on the posterior aspect of the greater trochanter approximately 1.5 cm in diameter. The inner surface was painted with methylene blue. Incision was then made just around the opening of the wound with a #15 blade. The incision was then deepened down into the subcutaneous tissue and the scar tissue with electrocautery. The wound was then completely excised with electrocautery until all blue material was removed. Once this had been done, a cutaneous advancement flap was then designed with the lone limp running along almost the mid axis of the lateral thigh. Incision was then made along the designed flap down to the underlying muscle fascia. The skin flap was then elevated off of the muscle fascia. It was noted that the location of the ulcer essentially is over and through the tensor fascia arturo muscle. At this point, there was not enough of the tensor fascia arturo muscle left over to pan puller the base of the ulcer. I elected to rotate some of the gluteus alexandra muscle anteriorly. I elevated the skin flap off of the muscle fascia surrounding the ulcer. I especially elevated the soft tissue off of the superficial surface of the gluteus alexandra muscle as it attaches the greater trochanter. The distal edge of the gluteus maximum muscle was then elevated and divided. I divided enough of the muscle to allow it to swing anteriorly over part of the ulcer. I then turned my attention to the tensor fascia arturo muscle. I elevated the muscle off of the underside as much as I could. I divided the muscle proximally which allowed the residual part of the muscle to swing inferiorly. Once this had been done, the inferior edge of the defect on the tensor fascia arturo muscle was sewn to the gluteus alexandra muscle with several 2-0 PDS wjecat-le-fzhyj sutures. This allowed coverage over the greater trochanter. Once this has been done, a drain was placed into the surgical site. The advancement flap was then advanced over the cutaneous defect. Excess flap was removed. The incision was reapproximated first with a layer of 3-0 Vicryl zhejwj-bo-ffoch sutures reapproximating the deep subcutaneous tissue. A layer of 3-0 Monocryl deep dermal sutures were then placed. Over the area of high tension, I placed some more Vicryl deep dermal sutures. The epidermal reapproximation was then carried out with skin estrella. The patient tolerated the procedure well. Needle count, sponge count, instrument counts were correct at the end of the procedure. The patient was extubated and transported to recovery in stable condition.
--- NOTE | 2017-01-09 11:27 | NUR ---
nurse to nurse report called into [facility]. Nurse states that she was very familiar with this patient. No questions at this time, [facility] call with any questions.
--- NOTE | 2017-01-09 11:27 | NUR ---
Social Work-discharge: Data:EMR Reviewed. Pt is on day 1 of hospitalization for left hip pressure ulcer per H&P. Pt is medically stable for discharge. MD order received for return to SNF. TESSA spoke with [facility] and they are agreeable to taking pt back today. UR Specialist faxed over orders and created packet. MD order received for BLS. UR Specialist arranged BLS for 1330. SW updated [facility] and they are agreeable to plan. SW updated pt at bedside regarding discharge and explained SW cannot guarantee that insurance will cover the cost of BLS, pt agreeable to proceed. Pt declined having SW call his family, he states he will call them himself. Pt does not have capacity for self care as he requires skilled level of care. UR Specialist spoke with [facility] and since pt is a day surgery he can just return. Pt is usp care at facility. Rn,Uc,pt, and [facility] all updated and agreeable to plan. 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 Plan:Pt to discharge back to [facility] today via BLS at 1330. Rn,Uc,pt, and [facility] all updated and agreeable to plan. Temitope Barron,MICHELLE
--- NOTE | 2017-01-14 11:13 | PATH ---
SURGICAL PATHOLOGY Attending Physician:Kristian Lee CASE STATUS: Signed Out PATIENT NAME: ABHAY BARBA PID: [id number] : 1935 DATE COLLECTED:01/08/2017 00:00 SPECIMEN: Skin, Debridement CLINICAL HISTORY: LEFT HIP PRESSURE ULCER 1). LEFT PRESSURE ULCER FINAL DIAGNOSIS: 1.SKIN AND TISSUE FROM "LEFT HIP", DEBRIDEMENT: CONSISTENT WITH PRESSURE ULCER. ICD10: L89.209 FIDENCIO, 01/13/2017 GROSS DESCRIPTION: The specimen is received in formalin, labeled with the patient's name, sublabeled as left pressure ulcer, and consists of an unoriented piece of ulcerated white firm skin (4.3 x 3.2 x 1.0 cm) exposing rubbery fibrofatty subcutaneous tissue. Ink code: black-resection margin. Section code: (A) tissue, serially sectioned, contact center representative. 01/09/17 JM MICRO DESCRIPTION: An ulcer is present with thin fibrinopurulent layer, granulation tissue, and fibrosis. Adjacent epidermis is thickened with hyperparakeratosis. No granulomas are seen. There is no evidence of malignancy. Note: Slides have been reviewed by Joseph Norwood M.D., dermatopathologist, who agrees with the diagnosis. ICD-9 CODES: CPT CODES: 1: 27671 Electronically Signed Out Leonel Rahman M.D.,[facility] [address], [place] [address] Technical component performed at [facility], [address] [place] [address] Ave[address], [place], [address]
== END 2017-01-09 14:53 | disposition home or self-care (01) ==
LOC: SAS 10:35 → MPC 14:50 → UNDOADMIN 14:50 → MPC 14:50 → SAS 01-09 14:53
PROVIDERS: ATTEND Plastic Surgery
DX: L89.224 Pressure ulcer of left hip, stage 4 (principal); M86.152 Other acute osteomyelitis, left femur; I12.9 Hypertensive chronic kidney disease with stage 1 through stage 4 chronic kidney disease, or unspecified chronic kidney disease; I38 Endocarditis, valve unspecified; E87.1 Hypo-osmolality and hyponatremia; G82.20 Paraplegia, unspecified; N18.3 Chronic kidney disease, stage 3 (moderate); K21.9 Gastro-esophageal reflux disease without esophagitis; F32.9 Major depressive disorder, single episode, unspecified; D64.9 Anemia, unspecified; M62.81 Muscle weakness (generalized); Z87.440 Personal history of urinary (tract) infections; Z79.82 Long term (current) use of aspirin; Z86.14 Personal history of Methicillin resistant Staphylococcus aureus infection; Z87.442 Personal history of urinary calculi
CPT/HCPCS: 15738; 15956; 87641; 88304; 96372; J1650; J2704; J3490; J7030; J7120